=== PATIENT | female | born 1990 | race Caucasian/White ===

== ENCOUNTER 2017-06-14 09:00 | Outpatient (RCR) | payer MEDICAID, SELFPAY ==
--- NOTE | 2017-06-14 10:58 | BH.SGPN ---
Service Group Progress Note - Session Psychotherapy Session #1 Date Open:: 18 - 5 group members Time Started:: 09:03 Time Stopped:: 09:55 Targeted Problem #:: 1 Type of Group:: Process Goal of Group:: The goal of today's group was to check-in with client's mood, stressors, and positives and introduce topic for the day. Behaviors/Verbalizations/Mental Status:: Client's time stopped for group differs from peers' as client left a few minutes early to meet with individual therapist. Client Response/Progress/Benefit:: Client responded well to session, active participant. Client reports feeling sluggish which client reports belief is due to recent medication changes. Client shared it almost makes me feel hungover and client reports feeling jumpy as well. Client stated she is concerned about the hungover feeling as client had issues with abusing alcohol in the past and her current reaction to the medication is making me want to drink. When asked how client is coping she shared, I've been isolating and sleeping and I know it's not good. Client identified healthy alternative coping skills such as going to counseling tonight. Client appeared to benefit from communicating medication concerns and finding alternative coping skills. Client encouraged to follow up with [facility] regarding recent medication side effects. Eye Contact:: Fair Motor Activity:: Slowed Appearance:: Casual Speech:: Soft Mood:: Dysthymic Affect:: Other - incongruent as evidenced by client reporting she is frustrated and feeling upset, but smiling while sharing. Thoughts:: Linear, No evidence of hallucinations/delusions noted Staff Interventions:: Therapist used open-ended questions to elicit information about client's current stressors and mood state. Therapist was supportive by using active listening and reflection. Therapist facilitated a mindfulness activity to promote emotional well-being and calmness.
--- NOTE | 2017-06-14 14:43 | BH.SGPN ---
Service Group Progress Note - Session Psychotherapy Session #2 Date Open:: 06/14/17 Time Started:: 10:15 Time Stopped:: 11:10 Targeted Problem #:: 1 Type of Group:: Illness Management Goal of Group:: The goal of group was to increase understanding of the benefits social support provides in mental health wellness. Another goal was to increase self-awareness of what qualities the individual group members look for in a person. Eye Contact:: Fair Motor Activity:: Appropriate Appearance:: Casual Speech:: Appropriate Mood:: Euthymic, Other - Tired which pt reported could be connected to her medications. Affect:: Constricted Thoughts:: Linear, Logical, No evidence of hallucinations/delusions noted Staff Interventions:: Therapist led an experiential activity that demonstrated the need of supports. Processed activity and led discussion about quote. Therapist led group discussion about importance of social supports. Identified what qualities a positive support person would have. Support was provided through reflective listening and giving feedback. Psychotherapy Session #3 Date Open:: 06/14/17 Time Started:: 11:20 Time Stopped:: 12:20 Targeted Problem #:: 1 Type of Group:: Functional Skills Development Goal of Group:: The goal of group was to increase understanding of the different types of social support. Another goal was to identify one type of support the clients desire and establish one small step towards achieving that support. Eye Contact:: Fair Motor Activity:: Appropriate Appearance:: Casual Speech:: Appropriate Mood:: Euthymic, Other - Tired which pt connected her medications to making her more tired. Affect:: Constricted Thoughts:: Linear, Logical, No evidence of hallucinations/delusions noted Staff Interventions:: Therapist facilitated group discussion on the different types of social support and importance of each type of support. A worksheet titled Plan for Seeking Support was utilized to give clients direction in identifying which type of support they desired and identifying the first small step towards the desired support.
--- NOTE | 2017-06-19 16:12 | BH.TPR ---
Treatment Plan Review Date of Treatment Plan Review:: 06/19/17
--- NOTE | 2017-06-20 10:41 | BH.SGPN ---
Service Group Progress Note - Session Psychotherapy Session #1 Date Open:: 05/17/17 Time Started:: 09:08 Time Stopped:: 10:12 Targeted Problem #:: 1 Type of Group:: Process - 9 participants Psychotherapy Session #2 Date Open:: 05/17/17 Time Started:: 10:27 Time Stopped:: 11:19 Targeted Problem #:: 1 Type of Group:: Illness Management - 6 participants Psychotherapy Session #3 Date Open:: 05/17/17 Time Started:: 11:28 Time Stopped:: 12:18 Targeted Problem #:: 1 Type of Group:: Functional Skills Development - 6 participants
--- NOTE | 2017-06-20 13:15 | BH.SGPN ---
Service Group Progress Note - Session Psychotherapy Session #1 Date Open:: 06/20/17 Time Started:: 09:10 Time Stopped:: 10:00 Targeted Problem #:: 1 Type of Group:: Process - 4 Participants Goal of Group:: The goal of today's group was to check-in with client's mood, stressors, and positives, review homework, and to introduce the topic of the day. Client Response/Progress/Benefit:: Client entered session alert and attentive. Client reported sleeping throughout most of the weekend and stated, I didnt want to be around anyone. When asked what triggered the isolative behavior client reported, [facility] I seen my ex-boyfriend and it brought back a lot of memories, but instead of going up to him I ran down three aisles away from him. Client identified that she was isolating over the weekend but was still able to talk with friends which she reported, helped me get think things through. Client shared that she was able to attend mosque on Monday and felt good that she was able to talk to others. Client benefitted from group identifying the negative coping skills she incorporated throughout the weekend. Progress noted as client was still able to use healthy coping skills such as reaching out to others despite isolative behavior. Continued treatment necessary to increase daily functioning. Eye Contact:: Good Motor Activity:: Appropriate Appearance:: Disheveled Speech:: Appropriate Mood:: Euthymic Affect:: Full Thoughts:: Linear, Logical, No evidence of hallucinations/delusions noted Staff Interventions:: Therapist used open-ended questions to elicit information about client's current stressors and mood. Therapist was supportive by using active listening and reflection. Psychotherapy Session #2 Date Open:: 06/20/17 Time Started:: 10:08 Time Stopped:: 11:00 Targeted Problem #:: 1 Type of Group:: Process - 5 Participants Goal of Group:: To increase understanding of components of a problem, learn strategies to solve a problem and rehearse problem solving skills. Client Response/Progress/Benefit:: Client entered session alert, attentive, and willing to engage. Client connected with the days quote stating, Problems wont go anywhere that their supposed too, Client went to share how she experienced a problem this week when she ran into her ex-boyfriend but, I took the best option and avoided him. Client participated in group activity designed to have group members use problem solving skills when faced with stressors. Client collaborated well with peers to successfully complete activity. Client benefitted from group by identifying various problem solving strategies and implementing them in group practice. Progress noted in clients ability complete activity and increased insight into healthy problem solving skills. Eye Contact:: Good Motor Activity:: Appropriate Appearance:: Disheveled Speech:: Appropriate Mood:: Euthymic, Anxious Affect:: Full Thoughts:: Linear, Logical, No evidence of hallucinations/delusions noted Staff Interventions:: Therapist facilitated group discussion about problems and the underlying components of problems. Therapist educated group about various strategies to solving a problem and provided an example of each. Therapist led group in an experiential activity that required group members to use problem solving skills to work together, rehearsing problem solving skills.
--- NOTE | 2017-06-20 15:09 | BH.SGPN ---
Service Group Progress Note - Session Psychotherapy Session #3 Date Open:: 06/20/17 - 5 group members Time Started:: 11:07 Time Stopped:: 12:01 Targeted Problem #:: 1 Type of Group:: Functional Skills Development Goal of Group:: To identify steps to solving a personal problem and increase awareness to those barriers that impedes the problem solving process. Client Response/Progress/Benefit:: Client responded well to session, passive participant at times. Client identified needing a job as a personal problem she would like to solve. Client identified her barriers to be: mental health, self-doubt, potential new mental health program, and isolation. Client created small steps to solve this problem such as: complete a job assessment, update her resume, find job resources, and apply for jobs. Client reported she may not be able to work toward this goal right now as client is potentially starting another mental health program after IOP. Client stated using healthy coping skills like pets, working on cars, and pentec[employer] will keep client motivated throughout this process. Client appeared to benefit from gaining awareness of barriers and identifying strategies to overcome her problem. Client progressing with identifying small steps to work toward goals, but continues to struggle with coping with triggers. Eye Contact:: Fair Motor Activity:: Appropriate Appearance:: Casual Speech:: Soft Mood:: Dysthymic Affect:: Constricted Thoughts:: Linear, No evidence of hallucinations/delusions noted Staff Interventions:: Therapist provided group members with a worksheet in which the group members were instructed to identify a problem and steps need to take to solve that problem. Then therapist instructed group members to identify those barriers that get in the way of solving the problem. Therapist led the processing of the activity. Therapist provided support by using active listening and providing feedback.
--- NOTE | 2017-06-21 12:02 | BH.SGPN ---
Service Group Progress Note - Session Psychotherapy Session #2 Date Open:: 06/21/17 Time Started:: 10:11 Time Stopped:: 11:08 Targeted Problem #:: 1 Type of Group:: Illness Management - 4 participants Psychotherapy Session #3 Date Open:: 06/21/17 Time Started:: 11:16 Time Stopped:: 12:12 Targeted Problem #:: 1 Type of Group:: Functional Skills Development - 4 participants
--- NOTE | 2017-06-21 12:03 | BH.SGPN ---
Service Group Progress Note - Session Psychotherapy Session #1 Date Open:: 06/21/17 Time Started:: 09:03 Time Stopped:: 09:55 Targeted Problem #:: 1 Type of Group:: Process Goal of Group:: The goal of today's group was to check-in with client's mood, stressors, and positives, review homework and introduce topic for the day. Client Response/Progress/Benefit:: Client shared she is feeling happy because she was able to go visit her birds yesterday. She shared when she gets to see her birds and tends to put her in a positive mood. 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 Client shared she is feeling stated that she is getting closer to being able to hopefully attend the residential program that would last 6-9 months. Client shared she will need to go to a interview and hopefully will find out soon after that if she is accepted to attend the program. Client progress may be hindered by client having difficulty with opening up to the group tends to keep those thoughts and feelings inside. Eye Contact:: Fair Motor Activity:: Restless Appearance:: Casual Speech:: Appropriate Mood:: Dysthymic Affect:: Constricted Thoughts:: Linear, Logical, No evidence of hallucinations/delusions noted Staff Interventions:: Therapist used open-ended questions to elicit information about client's current stressors and mood state. Therapist was supportive by using active listening and reflection.
--- NOTE | 2017-06-21 15:19 | BH.MDN ---
Multi-Disciplinary Note - Note 45-min Individual Time Started:: 12:15 Date: 06/21/17 Purpose of session/treatment goals addressed:: Purpose of session was to assess pt's current symptoms and stressors. Other topics included: mood state warning signs, relationships, and treatment progress. Eye Contact:: Fair Motor Activity:: Restless Appearance:: Casual Speech:: Appropriate Mood:: Depressed Affect:: Constricted Thoughts:: Linear, Logical, No evidence of hallucinations/delusions noted Staff Interventions:: Therapist used open ended questions to elicit pt's current symptoms and stressors. Therapist reviewed homework from last indiviudal session with pt. Discussed warning signs for manic state and depressive state. Therapist elicited pt's thoughts about progress since starting program and what pt believes she would like to focus on for remainder of program. Therapist provided support and validated emotions. Processed recent traumatic event and reinforced healthy coping skills. Client Response:: Pt reported she was able to identify her warning signs for a depressive state and a manic state. Identified depressive warning signs to include: feeling guilty, hopeless, worthless, difficulty making decisions, no energy, isolation, fatigue, c Time Stopped:: 13:00
--- NOTE | 2017-06-27 13:19 | BH.SGPN_ITS ---
Service Group Progress Note - Session Psychotherapy Session #1 Date Open:: 06/20/17 Time Started:: 09:10 Time Stopped:: 10:00 Targeted Problem #:: 1 Type of Group:: Process - 4 Participants Goal of Group:: The goal of today's group was to check-in with client's mood, stressors, and positives, review homework, and to introduce the topic of the day. Client Response/Progress/Benefit:: Client entered session alert and attentive. Client reported sleeping throughout most of the weekend and stated, ?I didn?t want to be around anyone.? When asked what triggered the isolative behavior client reported, ?In [facility] on Monday I seen my ex-boyfriend and it brought back a lot of memories, but instead of going up to him I ran down three aisles away from him.? Client identified that she was isolating over the weekend but was still able to talk with friends which she reported, ?helped me get think things through.? Client shared that she was able to attend nondenominational on Monday and felt good that she was able to talk to others. Client benefitted from group identifying the negative coping skills she incorporated throughout the weekend. Progress noted as client was still able to use healthy coping skills such as reaching out to others despite isolative behavior. Continued treatment necessary to increase daily functioning. Eye Contact:: Good Motor Activity:: Appropriate Appearance:: Disheveled Speech:: Appropriate Mood:: Euthymic Affect:: Full Thoughts:: Linear, Logical, No evidence of hallucinations/delusions noted Staff Interventions:: Therapist used open-ended questions to elicit information about client's current stressors and mood. Therapist was supportive by using active listening and reflection. Psychotherapy Session #2 Date Open:: 06/20/17 Time Started:: 10:08 Time Stopped:: 11:00 Targeted Problem #:: 1 Type of Group:: Process - 5 Participants Goal of Group:: To increase understanding of components of a problem, learn strategies to solve a problem and rehearse problem solving skills. Client Response/Progress/Benefit:: Client entered session alert, attentive, and willing to engage. Client connected with the days quote stating, ?Problems won? t go anywhere that their supposed too,? Client went to share how she experienced a problem this week when she ran into her ex-boyfriend but, ?I took the best option and avoided him.? Client participated in group activity designed to have group members use problem solving skills when faced with stressors. Client collaborated well with peers to successfully complete activity. Client benefitted from group by identifying various problem solving strategies and implementing them in group practice. Progress noted in client?s ability complete activity and increased insight into healthy problem solving skills. Eye Contact:: Good Motor Activity:: Appropriate Appearance:: Disheveled Speech:: Appropriate Mood:: Euthymic, Anxious Affect:: Full Thoughts:: Linear, Logical, No evidence of hallucinations/delusions noted Staff Interventions:: Therapist facilitated group discussion about problems and the underlying components of problems. Therapist educated group about various strategies to solving a problem and provided an example of each. Therapist led group in an experiential activity that required group members to use problem solving skills to work together, rehearsing problem solving skills.
--- NOTE | 2017-06-28 14:18 | BH.SGPN_ITS ---
Service Group Progress Note - Session Psychotherapy Session #2 Date Open:: 06/28/17 group members Time Started:: 10:20 Time Stopped:: 11:15 Targeted Problem #:: 1 Type of Group:: Illness Management Goal of Group:: To increase understanding of resilience and identify the factors that contribute to building resilience. Client Response/Progress/Benefit:: Client responded well to session, active participant. Client processed the quote with peers sharing being rigid does not help a person adapt. Client helped the group identify factors of resiliency such as supportive connections and moving towards goals. Client shared it is important to communicate to supports to build resiliency and keep moving towards goals. Client reported belief she is resilient and agreed with peers that resiliency is something that is learned and developed over time as one overcomes hardships. Client appeared to benefit from increasing her awareness of the resiliency factors. Client progressing as shown by her report of increased use of healthy supports, but continues to struggle with setting boundaries which could hinder progress. Eye Contact:: Fair Motor Activity:: Appropriate Appearance:: Casual Speech:: Appropriate Mood:: Euthymic Affect:: Constricted Thoughts:: Linear, No evidence of hallucinations/delusions noted Staff Interventions:: Therapist led group in an activity that would induce a chaotic environment and used the activity as a tool in discussing the various stressors people are faced with each day. Therapist facilitated group discussion about resilience and explained the factors of building resilience. Therapist led discussion about factors that contribute to resilience. Therapist provided support by using active listening and providing feedback. Psychotherapy Session #3 Date Open:: 06/28/17 group members Time Started:: 11:21 Time Stopped:: 12:11 Targeted Problem #:: 1 Type of Group:: Functional Skills Development Goal of Group:: To rehearse resilient factors and identify ways to maintain resilience despite hardships and stressors. Client Response/Progress/Benefit:: Client responded well to session, active participant. Client reported communication and working with a team of supports increases resiliency. Client identified her personal resiliency factors as accepting that change ?is life? and having courage to change. Client stated her life experiences have shaped her and allowed client to reflect on positive changes she has made. Client was receptive to supportive statements given by therapist and peers on additional resiliency traits client possesses. Client wrote her personal resiliency traits on her stress ball to remind client of how she can remain resilient despite hardships. Client appeared to benefit from identifying ways in which client has demonstrated resiliency. Client progressing as evidenced by her report of increased confidence in client?s ability to change. Eye Contact:: Good Motor Activity:: Appropriate Appearance:: Casual Speech:: Appropriate Mood:: Euthymic Affect:: Congruent Thoughts:: Linear, No evidence of hallucinations/delusions noted Staff Interventions:: Therapist led group in an activity in which group members were challenged to stay resilient despite various stressors and hardships added to activity. Therapist provided each group member with a stress ball and used stress ball as a tool to discuss factors of resilient personality. Therapist provided group members with a handout about the building blocks of resilience. Therapist provided support by using reflective listening.
--- NOTE | 2017-06-28 16:18 | BH.SGPN ---
Service Group Progress Note - Session Psychotherapy Session #1 Date Open:: 06/28/17 Time Started:: 09:09 Time Stopped:: 10:15 Targeted Problem #:: 1 Type of Group:: Process - 10 participants
--- NOTE | 2017-07-03 10:31 | BH.SGPN ---
Service Group Progress Note - Session Psychotherapy Session #1 Date Open:: 18 - 9 group members Time Started:: 09:00 Time Stopped:: 10:02 Targeted Problem #:: 1 Type of Group:: Process Goal of Group:: The goal of today's group was to check-in with client's mood, stressors, and positives, and introduce topic for the day. Staff Interventions:: Therapist used open-ended questions to elicit information about client's current stressors and mood state. Therapist was supportive by using active listening and reflection.
--- NOTE | 2017-07-03 15:17 | BH.MDN ---
Multi-Disciplinary Note - Note 30-min Individual Time Started:: 09:05 Date: 07/03/17 Time Stopped:: 09:35
--- NOTE | 2017-07-03 16:37 | BH.SGPN ---
Service Group Progress Note - Session Psychotherapy Session #2 Date Open:: 07/03/17 Time Started:: 10:12 Time Stopped:: 11:12 Targeted Problem #:: 1 Type of Group:: Illness Management - 10 participants Psychotherapy Session #3 Date Open:: 07/03/17 Time Started:: 11:19 Time Stopped:: 12:20 Targeted Problem #:: 1 Type of Group:: Functional Skills Development - 10 participants
--- NOTE | 2017-07-04 13:22 | BH.SGPN ---
Service Group Progress Note - Session Psychotherapy Session #1 Date Open:: 07/04/17 Time Started:: 09:05 Time Stopped:: 09:57 Targeted Problem #:: 1 Type of Group:: Process - 4 Participants Goal of Group:: The goal of today's group was to check-in with client's mood, stressors, and positives, review homework, and to introduce the topic of the day. Client Response/Progress/Benefit:: Client entered session alert, attentive, and willing to engage. Client shared that she was able to see her birds yesterday, which always makes her feel happy, and has plans of getting another bird soon. Client indicated her emotion as awesome but when asked to elaborate she reported, I feel better now than what I did. I know more about myself and I have more coping skills to use for when I start feeling bad. Therapist questioned what some of her warning signs were and she stated, I start feeling down, I sleep a lot, and I dont want to do anything. Client was able to identify that in the past she was preventing herself from moving forward but now is taking preventative measures to ensure things do get bad as before. Client benefited from group from identifying the control she has over stressors. Progress noted in clients ability to effectively use coping skills in a healthy manner. Continued treatment necessary to prevent decompensation. Eye Contact:: Good Motor Activity:: Appropriate Appearance:: Casual Speech:: Appropriate Mood:: Euthymic Affect:: Full Thoughts:: Linear, Logical, No evidence of hallucinations/delusions noted Staff Interventions:: Therapist used open-ended questions to elicit information about client's current stressors and mood. Therapist was supportive by using active listening and reflection. Psychotherapy Session #2 Date Open:: 07/04/17 Time Started:: 10:05 Time Stopped:: 11:00 Targeted Problem #:: 1 Type of Group:: Illness Management - 4 Participants Goal of Group:: The goal of todays group is to identify how emotions can impact our communication skills, and why it is important to be able to communicate in stressful situations. Client Response/Progress/Benefit:: Client was alert and attentive during group. Client was a semi-active participant in group. Client did well to process with the group how various emotions impact communication and ones ability to utilize supports. Client collaborated with peers and participated in group activity that tested how clients manage their emotions when placed under stressful circumstances. It appeared throughout the activity client struggled communicating with peers what she was trying to say, lead peers down difficult roads with barriers, and would freeze when she became overwhelmed. Despite difficulty, client benefitted from relating activity back to how our emotions impact communication during times of stress. Progress noted in clients persistence to complete activity. Continued treatment necessary to prevent decompensation. Eye Contact:: Good Motor Activity:: Appropriate Appearance:: Casual Speech:: Appropriate Mood:: Euthymic Affect:: Full Thoughts:: Linear, Logical, No evidence of hallucinations/delusions noted Staff Interventions:: Therapist led an experiential activity where group members worked together for a common goal, but with adaptations made on how members were able to communicate with one another. Therapist used open-ended questions to elicit group discussion about emotions which arose during activity, as well as identifying how emotions experienced impacted ability to communicate effectively with other group members.
--- NOTE | 2017-07-04 13:25 | BH.SGPN_ITS ---
Service Group Progress Note - Session Psychotherapy Session #1 Date Open:: 07/04/17 Time Started:: 09:05 Time Stopped:: 09:57 Targeted Problem #:: 1 Type of Group:: Process - 4 Participants Goal of Group:: The goal of today's group was to check-in with client's mood, stressors, and positives, review homework, and to introduce the topic of the day. Client Response/Progress/Benefit:: Client entered session alert, attentive, and willing to engage. Client shared that she was able to see her birds yesterday, which always makes her feel happy, and has plans of getting another bird soon. Client indicated her emotion as awesome but when asked to elaborate she reported , ?I feel better now than what I did. I know more about myself and I have more coping skills to use for when I start feeling bad.? Therapist questioned what some of her warning signs were and she stated, ?I start feeling down, I sleep a lot, and I don?t want to do anything.? Client was able to identify that in the past she was preventing herself from moving forward but now is taking preventative measures to ensure things do get bad as before. Client benefited from group from identifying the control she has over stressors. Progress noted in client?s ability to effectively use coping skills in a healthy manner. Continued treatment necessary to prevent decompensation. Eye Contact:: Good Motor Activity:: Appropriate Appearance:: Casual Speech:: Appropriate Mood:: Euthymic Affect:: Full Thoughts:: Linear, Logical, No evidence of hallucinations/delusions noted Staff Interventions:: Therapist used open-ended questions to elicit information about client's current stressors and mood. Therapist was supportive by using active listening and reflection. Psychotherapy Session #2 Date Open:: 07/04/17 Time Started:: 10:05 Time Stopped:: 11:00 Targeted Problem #:: 1 Type of Group:: Illness Management - 4 Participants Goal of Group:: The goal of today?s group is to identify how emotions can impact our communication skills, and why it is important to be able to communicate in stressful situations. Client Response/Progress/Benefit:: Client was alert and attentive during group. Client was a semi-active participant in group. Client did well to process with the group how various emotions impact communication and one?s ability to utilize supports. Client collaborated with peers and participated in group activity that tested how clients manage their emotions when placed under stressful circumstances. It appeared throughout the activity client struggled communicating with peers what she was trying to say, lead peers down difficult roads with barriers, and would freeze when she became overwhelmed. Despite difficulty, client benefitted from relating activity back to how our emotions impact communication during times of stress. Progress noted in client?s persistence to complete activity. Continued treatment necessary to prevent decompensation. Eye Contact:: Good Motor Activity:: Appropriate Appearance:: Casual Speech:: Appropriate Mood:: Euthymic Affect:: Full Thoughts:: Linear, Logical, No evidence of hallucinations/delusions noted Staff Interventions:: Therapist led an experiential activity where group members worked together for a common goal, but with adaptations made on how members were able to communicate with one another. Therapist used open-ended questions to elicit group discussion about emotions which arose during activity , as well as identifying how emotions experienced impacted ability to communicate effectively with other group members.
--- NOTE | 2017-07-04 14:50 | BH.SGPN_ITS ---
Service Group Progress Note - Session Psychotherapy Session #3 Date Open:: 07/04/17 - 4 group members Time Started:: 11:10 Time Stopped:: 12:03 Targeted Problem #:: 1 Type of Group:: Functional Skills Development Goal of Group:: The goal of today?s group was to increase awareness of different states of alertness attached to emotions and identifying healthy coping strategies for each state of alertness. Client Response/Progress/Benefit:: Client responded well to session, active participant. Client shared she connects with the four states of emotional alertness and processed her warning signs and coping skills for each state. Client reported when she feels low energy she isolates and has negative thinking. Client identified ?being active? by getting out of the house to improve client's low energy or depressed state. Client shared when she is in the crisis state she wants to use substances and feels hopeless. Client identified coping skills for crisis such as ?finger-tapping? and deep breathing. Client reported it is important to have awareness of warning signs for each emotional state so client can implement healthy coping skills. Client appeared to benefit from identifying warning signs and healthy coping skills specific each level of emotional alertness. Client also reported self-care is critical maintaining a calm emotional state. Client progressing as shown by her report of an improved mood and increased mood stability. Eye Contact:: Fair - on her phone at times Motor Activity:: Appropriate Appearance:: Casual Speech:: Appropriate Mood:: Euthymic Affect:: Congruent Thoughts:: Linear, No evidence of hallucinations/delusions noted Staff Interventions:: Therapist facilitated group by teaching about the 4 zones of different states of alertness and helping clients connect emotions to each zone based on state of alertness. Therapist assisted clients with identifying healthy coping strategies that would be best utilized based on the state of alertness. Therapist provided support by using active listening and providing feedback.
--- NOTE | 2017-07-05 12:28 | BH.AFTERPLAN ---
Aftercare Plan - Demographics Treatment End Date:: 07/05/17 Psychiatrist:: Radha Nicholas Psychiatrist Office #:: [phone] [facility]/IOP Therapist:: Rachel Hernandez Therapist Phone #:: [phone] - Medications Home Medications: Home Medications Atorvastatin Calcium [Lipitor] 10 mg PO QHS 06/09/17 Brexpiprazole [Rexulti] 2 mg PO DAILY 06/09/17 Hydroxyzine Pamoate [Vistaril] 50 mg PO DAILY PRN 06/09/17 [place] Carbonate 300 mg PO BREAKFAST 06/09/17 [place] Carbonate [Eskalith Cr] 450 mg PO DINNER 06/09/17 Trazodone HCl [Desyrel] 50 mg PO QHS PRN 06/09/17 Venlafaxine XR [Effexor Xr] 300 mg PO DAILY 06/09/17 - Plan Details Progress/Aftercare Plan Details:: Client has made progress with improved mood stability and decreased anxious symptoms. Client is better able to identify her warning signs for the different mood states as well as knows the coping skills to help stabilize her moods. Client has shown improvement with increased self confidence and assertiveness. Client reports feeling more emotionally stable with more awareness of healthy coping skills. Strategies for Success:: 1. Cooking, walking, and other healthy coping skills you've found to be helpful. 2. Going to visit your birds. 3. REaching out to supports like advent and attending the [employer] program. 4. Continue to recognize your unhealthy thought patterns and challenge those thoughts. 5. Boundaries are hillman!!! 6. Stopping to think when the best time is to speak up. 7. Referring back to your binder for refresher of skills. - Appointments Appointments/Referrals to Other Services:: 1. Caitlyn chowdhury for followup counseling on 07/06/17 at [address] 2[address] Dr. Simons at [facility] for followup psychiatry on 08/08/17.
--- NOTE | 2017-07-05 12:33 | BH.IGGP_ITS ---
Aftercare Plan - Demographics Treatment End Date:: 07/05/17 Psychiatrist:: Radha Nicholas Psychiatrist Office #:: [phone] [facility]/IOP Therapist:: Rachel Hernandez Therapist Phone #:: [phone] - Medications Home Medications: Home Medications Atorvastatin Calcium [Lipitor] 10 mg PO QHS 06/09/17 Brexpiprazole [Rexulti] 2 mg PO DAILY 06/09/17 Hydroxyzine Pamoate [Vistaril] 50 mg PO DAILY PRN 06/09/17 [place] Carbonate 300 mg PO BREAKFAST 06/09/17 [place] Carbonate [Eskalith Cr] 450 mg PO DINNER 06/09/17 Trazodone HCl [Desyrel] 50 mg PO QHS PRN 06/09/17 Venlafaxine XR [Effexor Xr] 300 mg PO DAILY 06/09/17 - Plan Details Progress/Aftercare Plan Details:: Client has made progress with improved mood stability and decreased anxious symptoms. Client is better able to identify her warning signs for the different mood states as well as knows the coping skills to help stabilize her moods. Client has shown improvement with increased self confidence and assertiveness. Client reports feeling more emotionally stable with more awareness of healthy coping skills. Strategies for Success:: 1. Cooking, walking, and other healthy coping skills you've found to be helpful. 2. Going to visit your birds. 3. REaching out to supports like [employer] and attending the [employer] program. 4. Continue to recognize your unhealthy thought patterns and challenge those thoughts. 5. Boundaries are hillman!!! 6. Stopping to think when the best time is to speak up. 7. Referring back to your binder for refresher of skills. - Appointments Appointments/Referrals to Other Services:: 1. Caitlyn chowdhury for followup counseling on 07/06/17 at [address] 2[address] Dr. Simons at [facility] for followup psychiatry on 08/08/17.
--- NOTE | 2017-07-05 14:25 | BH.DS ---
Discharge Summary - Demographics Date of Admission:: 05/22/17 Discharge Date: 07/05/17 Presenting Problems at Admission:: Pt presented to admission after discharge from [facility] level of care. At time of [facility] admission pt endorsed depressed mood with low energy, low motivation, anhedonia, isolative behaviors, and passive thoughts of . Discharge Diagnoses:: Bipolar 2 disorder. Generalized anxiety disorder. PTSD. Cluster B traits. History of alcohol abuse-remote Reason for Discharge:: Pt has made progress on treatment goals and no longer meets medical necessity for [facility] of care. - Treatment Progress During Treatment & Response: Client has made progress with improved mood stability and decreased anxious symptoms. Client is better able to identify her warning signs for her different mood states as well as knows the coping skills to help stabilize her moods. Client has shown improvement with increased self confidence and assertiveness. Client reports feeling more emotionally stable with increased awareness of healthy coping skills. Client responded well to treatment AEB pt contributing to discussions, engaged in activities, and completed assigned homework from both individual and group sessions. Issues Still to be Addressed:: Client could benefit from continued reinforcement of healthy coping skills, strategies to help client maintain healthy boundaries, increase extracurricular activities, and working through past experiences that continue to impact client to this day. Discharge Recommendations/Instructions:: It is recommended pt follow up with Caitlyn at [facility] for followup counseling. As well as follow up with Dr. Simons at [facility] for medication management. Discharge Handout: Complete Discharge Handout with client on aftercare options and continuity of care.
--- NOTE | 2017-07-05 14:45 | BH.SGPN ---
Service Group Progress Note - Session Psychotherapy Session #2 Date Open:: 07/05/17 Time Started:: 10:15 Time Stopped:: 11:07 Targeted Problem #:: 1 Type of Group:: Illness Management - 8 group members Goal of Group:: To increase understanding how positive and negative forces in life can impact balance in life. Client Response/Progress/Benefit:: Client had some difficulty with focusing at times because client seemed to be easily distracted by another group member that was not on task. Client did contributed positively to discussion. Client was engaged in group challenge activity however did not verbalize any of her thoughts or ideas during brainstorming. Client able to connect importance of being able to balance forces as well as being able to utilize supports to be able to help. Seemed benefit from increasing awareness of the impact negative and positive forces can have on ones functioning and progress. Eye Contact:: Good Motor Activity:: Appropriate Appearance:: Casual Speech:: Appropriate Mood:: Euthymic Affect:: Congruent Thoughts:: Linear, Logical, No evidence of hallucinations/delusions noted Staff Interventions:: Therapist facilitated group discussion about the various forces of life and helped clients connect the impact they have on balance in life. Therapist led group in an experiential activity in which group members had to work together to balance an object and move it to a designated location. Therapist utilized the activity as a tool to process the challenges connected with balancing various forces. Psychotherapy Session #3 Date Open:: 07/05/17 Time Started:: 11:17 Time Stopped:: 12:15 Targeted Problem #:: 1 Type of Group:: Functional Skills Development - 7 group members Goal of Group:: To identify positive and negative forces in life and identify which forces are helping stability and which forces are contributing to instability. Client Response/Progress/Benefit:: Client showed increased engagement during the this group session as evidenced by client's contributing to discussion and listening to peers. Client identified her negative forces to include: Her brothers, toxic relationships, alcohol, isolation, and sleeping too much. 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 Client identified her forces to be balance currently with knowing she is going to [employer] as her most positive impactful force. Client seemed to benefit from increasing awareness of her negative and positive forces as well as discussion of how to maintain that balance between the forces. Client also noted the progress she made throughout IOP given today is her last day in the program. Eye Contact:: Good Motor Activity:: Appropriate Appearance:: Casual Speech:: Appropriate Mood:: Euthymic Affect:: Congruent Thoughts:: Linear, Logical, No evidence of hallucinations/delusions noted Staff Interventions:: Therapist provided group with an example of a scenario of a person and the individual?s positive and negative forces. Therapist provided each group member with a worksheet in which they were to identify five positive and five negative forces in their life. Therapist processed the activity with the group, helping others connect the impact certain forces have on their life balance.
--- NOTE | 2017-07-05 14:52 | BH.SGPN_ITS ---
Service Group Progress Note - Session Psychotherapy Session #1 Date Open:: 18 - 8 group members Time Started:: 09:05 Time Stopped:: 10:00 Targeted Problem #:: 1 Type of Group:: Process Goal of Group:: The goal of today's group was to check-in on client's mood, stressors, and functioning. Client Response/Progress/Benefit:: Client responded well to session, active participant. Client reports feeling ?proud? today as client shares she has worked hard throughout her time in IOP to make changes and remove ?toxic? people from her life. Client reflected on her time in IOP sharing, ?at first I was overwhelmed, but I learned so much.? Client reported moving forward she is nervous to leave, but identified her mother as a support that will help client progress. Eye Contact:: Good Motor Activity:: Appropriate Appearance:: Casual Speech:: Appropriate Mood:: Euthymic Affect:: Full Thoughts:: Linear, No evidence of hallucinations/delusions noted Staff Interventions:: Therapist facilitated the group session by asking open ended questions that encouraged group members to discuss their coping skills, stressors, barriers, and current mood state.
--- NOTE | 2017-07-10 09:26 | BH.DS_ITS ---
Discharge Summary - Demographics Date of Admission:: 05/22/17 Discharge Date: 07/05/17 Presenting Problems at Admission:: Pt presented to admission after discharge from [facility] level of care. At time of [facility] admission pt endorsed depressed mood with low energy, low motivation, anhedonia, isolative behaviors, and passive thoughts of . Discharge Diagnoses:: Bipolar 2 disorder. Generalized anxiety disorder. PTSD. Cluster B traits. History of alcohol abuse-remote Reason for Discharge:: Pt has made progress on treatment goals and no longer meets medical necessity for [facility] of care. - Treatment Progress During Treatment & Response: Client has made progress with improved mood stability and decreased anxious symptoms. Client is better able to identify her warning signs for her different mood states as well as knows the coping skills to help stabilize her moods. Client has shown improvement with increased self confidence and assertiveness. Client reports feeling more emotionally stable with increased awareness of healthy coping skills. Client responded well to treatment AEB pt contributing to discussions, engaged in activities, and completed assigned homework from both individual and group sessions. Issues Still to be Addressed:: Client could benefit from continued reinforcement of healthy coping skills, strategies to help client maintain healthy boundaries, increase extracurricular activities, and working through past experiences that continue to impact client to this day. Discharge Recommendations/Instructions:: It is recommended pt follow up with Caitlyn at [facility] for followup counseling. As well as follow up with Dr. Simons at [facility] for medication management. Discharge Handout: Complete Discharge Handout with client on aftercare options and continuity of care.
--- NOTE | 2017-07-10 09:53 | BH.SGPN_ITS ---
Service Group Progress Note - Session Psychotherapy Session #2 Date Open:: 07/05/17 Time Started:: 10:15 Time Stopped:: 11:07 Targeted Problem #:: 1 Type of Group:: Illness Management - 8 group members Goal of Group:: To increase understanding how positive and negative forces in life can impact balance in life. Client Response/Progress/Benefit:: Client had some difficulty with focusing at times because client seemed to be easily distracted by another group member that was not on task. Client did contributed positively to discussion. Client was engaged in group challenge activity however did not verbalize any of her thoughts or ideas during brainstorming. Client able to connect importance of being able to balance forces as well as being able to utilize supports to be able to help. Seemed benefit from increasing awareness of the impact negative and positive forces can have on ones functioning and progress. Eye Contact:: Good Motor Activity:: Appropriate Appearance:: Casual Speech:: Appropriate Mood:: Euthymic Affect:: Congruent Thoughts:: Linear, Logical, No evidence of hallucinations/delusions noted Staff Interventions:: Therapist facilitated group discussion about the various forces of life and helped clients connect the impact they have on balance in life. Therapist led group in an experiential activity in which group members had to work together to balance an object and move it to a designated location. Therapist utilized the activity as a tool to process the challenges connected with balancing various forces. Psychotherapy Session #3 Date Open:: 07/05/17 Time Started:: 11:17 Time Stopped:: 12:15 Targeted Problem #:: 1 Type of Group:: Functional Skills Development - 7 group members Goal of Group:: To identify positive and negative forces in life and identify which forces are helping stability and which forces are contributing to instability. Client Response/Progress/Benefit:: Client showed increased engagement during the this group session as evidenced by client's contributing to discussion and listening to peers. Client identified her negative forces to include: Her brothers, toxic relationships, alcohol, isolation, and sleeping too much. 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 Client identified her forces to be balance currently with knowing she is going to [employer] as her most positive impactful force. Client seemed to benefit from increasing awareness of her negative and positive forces as well as discussion of how to maintain that balance between the forces. Client also noted the progress she made throughout IOP given today is her last day in the program. Eye Contact:: Good Motor Activity:: Appropriate Appearance:: Casual Speech:: Appropriate Mood:: Euthymic Affect:: Congruent Thoughts:: Linear, Logical, No evidence of hallucinations/delusions noted Staff Interventions:: Therapist provided group with an example of a scenario of a person and the individual???s positive and negative forces. Therapist provided each group member with a worksheet in which they were to identify five positive and five negative forces in their life. Therapist processed the activity with the group, helping others connect the impact certain forces have on their life balance.
== END 2017-07-05 14:00 | disposition home or self-care (01) ==
LOC: BHIOP 09:00
PROVIDERS: Visit Provider Psychiatry & Neurology Psychiatry
DX: F31.9 Bipolar disorder, unspecified (principal); F41.1 Generalized anxiety disorder; F43.10 Post-traumatic stress disorder, unspecified
CPT/HCPCS: H0035; H2012; H2020; 90832; 90834

== ENCOUNTER 2022-03-20 16:30 | Emergency (ER) | payer MEDICAID, SELFPAY ==
[2022-03-20 16:31] VITALS: BP 123/93; PULSE 94; RESP 16; TEMP 36.2; O2SAT 99; BMI 49.0
--- NOTE | 2022-03-20 16:38 | CT_ITS ---
STUDY: CT BRAIN WITHOUT CONTRAST ADMINISTRATION OF 1656 HOURS ON 03/20/2022 REASON FOR EXAM: 31-year-old female with fall and seizure. RADIATION DOSAGE (If Supplied By Facility): CTDIvol = ( 44.99 ) mGy, DLP = ( 711.75 ) mGycm. TECHNIQUE: Transaxial CT imaging of the brain was performed without administration of intravenous contrast material. Individualized dose optimization techniques were used for this CT. Sagittal and coronal reconstructions were obtained and all were demonstrated in osseous and soft tissue algorithms. COMPARISON: No relevant priors. FINDINGS: Normal ventricular system without a midline shift. No intracranial mass lesions. No subdural, epidural, intracerebral hematoma, hemorrhage or contusion. No infarcts. Normal sella and pituitary appear normal brainstem and posterior fossa. Normal calvarium without linear or depressed skull fractures. Prominent mucosal thickening in the right maxillary sinus and mucosal thickening in the posterior aspect of the right ethmoid sinus. The other paranasal sinuses are normal. CT/Brain/Head without Contrast IMPRESSION: 1. No intracranial mass lesions. 2. No subdural, epidural, or intracerebral hematoma, hemorrhage or contusion. 3. No infarcts. 4. No other intracranial pathology. 5. Normal calvarium without fractures. 6. Chronic right maxillary and posterior right ethmoid sinusitis. Electronically Signed: Henrry Samayoa MD at 17:55 EDT ,
--- NOTE | 2022-03-20 16:40 | EX.ED.DYSGE1 ---
HPI History of Present Illness Chief Complaint: Seizure Informant: patient Narrative Narrative: 31-year-old female presenting after seizure. Patient was at work and reportedly had a seizure. She was standing and fell to the ground. She states she woke up with people around her. She states she has been under a lot of stress recently. She denies suicidal ideation. 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 Complains of mild headache, denies other injury from fall. Denies recent illness. No incontinence. Denies possibility of . Denies other complaints. Prior similar symptoms: Yes Recent Illness/Hospital[facility]: [facility] Medical History Pseudoseizures Home Medications atorvastatin 10 mg tablet 10 mg PO QHS 06/09/17 [History Last Taken Unknown] trazodone 50 mg tablet 50 mg PO QHS PRN Insomnia 06/09/17 [History Last Taken Unknown] venlafaxine 150 mg capsule,extended release 24 hr 150 mg PO DAILY 06/09/17 [History Last Taken Unknown] acarbose 25 mg tablet 25 mg PO TID 03/20/22 [History Last Taken Unknown] biotin 5 mg capsule 5 mg PO DAILY 03/20/22 [History Last Taken Unknown] buspirone 10 mg tablet 10 mg PO BID 03/20/22 [History Last Taken Unknown] cariprazine 4.5 mg capsule (Vraylar) 4.5 mg PO DAILY 03/20/22 [History Last Taken Unknown] famotidine 20 mg tablet 20 mg PO DAILY 03/20/22 [History Last Taken Unknown] metformin 500 mg tablet,extended release 24 hr 500 mg PO DAILY 03/20/22 [History Last Taken Unknown] Allergy/AdvReac Type Severity Reaction Status Date / Time erythromycin base Allergy Angioedema Verified 06/23/17 11:22 medroxyprogesterone Allergy Rash Verified 06/23/17 11:22 [From Depo-Provera] olanzapine [From Zyprexa] Allergy Swelling Verified 06/23/17 11:22 sulfamethoxazole Allergy Swelling Verified 06/23/17 11:22 [From Bactrim] trimethoprim [From Bactrim] Allergy Swelling Verified 06/23/17 11:22 amitriptyline [From Elavil] AdvReac Other Verified 06/23/17 11:22 amoxicillin [From Augmentin] AdvReac Diarrhea Verified 06/23/17 11:22 azithromycin [From Zithromax] AdvReac Diarrhea Verified 06/23/17 11:22 clavulanic acid AdvReac Diarrhea Verified 06/23/17 11:22 [From Augmentin] Social History Smoking Status: Unknown if ever smoked ROS ROS ED Constitutional Constitutional ED: Denies fever(s) Eyes Eyes: Denies change in vision ENT ENT ED: Denies rhinorrhea or sore throat Cardiovascular Cardiovascular: Denies chest pain or palpitations Respiratory/Chest Respiratory/Chest: Denies cough or dyspnea Gastrointestinal Gastrointestinal: Denies abdominal pain, diarrhea, nausea or vomiting Genitourinary Genitourinary ED: Denies dysuria Musculoskeletal Musculoskeletal: Denies myalgias Integumentary Denies rash Neurologic Neurologic: Reports headache(s) Psychiatric Psychiatric: Denies suicidal thoughts EXAM Physical Exam Const Vital Signs: 03/20/22 16:31 Temperature 97.1 F L Temperature Source Oral Pulse Rate 94 Respiratory Rate 16 Blood Pressure 123/93 H Blood Pressure Mean 103 Pulse Ox 99 Oxygen Delivery Method Room Air Positive well nourished and well developed General Appearance ED: well developed HEENT Reports normocephalic and head/scalp atraumatic Eyes PERRL and EOMs intact bilaterally Neck supple Neck Narrative: No midline cervical spine tenderness. General: Negative for tenderness Chest Wall inspection of chest normal Resp normal respiratory effort and clear to auscultation bilaterally Cardio regular rate and regular rhythm GI non-tender and non-distended Palpation: soft; Negative for guarding or rebound tenderness present no CVA tenderness Extremity normal to inspection Neuro oriented x3, CN's II-XII intact bilaterally and no sensory deficits noted Sensorium / Orientation: alert Motor Exam: strength 5/5 throughout Psych mental status grossly normal MDM MDM MDM Narrative Medical decision making narrative: CBC, chemistries obtained. Penermon level less than 0.20. Patient later stated that she no longer takes lithium. CT head shows no acute process. Patient is resting comfortably on reevaluation. She has had no further seizure activity. She is advised to not drive until following up with neurology. She is comfortable with this plan. Advised to return to ED for worsening complaints Lab Data Attestation: I reviewed the patient's lab results. Labs: Laboratory Results - last 24 hr 03/20/22 03/20/22 03/20/22 16:47 16:47 16:47 WBC 7.6 RBC 4.72 Hgb 13.9 Hct 42.2 MCV 89.4 MCH 29.4 MCHC 32.9 RDW Std Deviation 40.0 RDW Coeff of Debra 12.2 Plt Count 205 MPV 11.1 Immature Gran % (Auto) 0.100 Neut % (Auto) 53.8 Lymph % (Auto) 37.6 [place] % (Auto) 7.0 Eos % (Auto) 1.1 Baso % (Auto) 0.4 Absolute Neuts (auto) 4.1 Absolute Lymphs (auto) 2.86 Nucleated RBC % 0 Sodium 141 Potassium 4.3 Chloride 109 H Carbon Dioxide 24.0 Anion Gap 8 BUN 11 Creatinine 0.87 Estim Creat Clear Calc 155.93 Est GFR (MDRD) Af Amer 97 Est GFR (MDRD) Non-Af 80 BUN/Creatinine Ratio 12.7 Glucose 131 H Calcium 8.9 Penermon < 0.20 L Radiography Diagnostic Testing: Clinical Impression(s) from Imaging Studies Brain CT 03/20/22 16:38 IMPRESSION: 1. No intracranial mass lesions. 2. No subdural, epidural, or intracerebral hematoma, hemorrhage or contusion. 3. No infarcts. 4. No other intracranial pathology. 5. Normal calvarium without fractures. 6. Chronic right maxillary and posterior right ethmoid sinusitis. Electronically Signed: Henrry Samayoa MD at 17:55 EDT , Discharge Plan Triage Chief Complaint: Seizure ED Provider: Ruth Swann Dx/Rx/DC Orders Clinical Impression: Seizure Instructions: ED Seizure, Recurrent (Adult) Prescriptions: No Action trazodone 50 MG tablet 50 mg PO QHS PRN (Reason: Insomnia) atorvastatin 10 MG tablet 10 mg PO QHS venlafaxine 150 MG capsule 150 mg PO DAILY biotin 5 mg capsule 5 mg PO DAILY Label Comments: TAKE 1 CAPSULE BY MOUTH DAILY famotidine 20 mg tablet 20 mg PO DAILY Label Comments: TAKE 1 TABLET BY MOUTH EVERY DAY buspirone 10 mg tablet 10 mg PO BID metformin 500 mg tablet extended release 24 hr 500 mg PO DAILY Label Comments: TAKE 1 TABLET BY MOUTH ONCE DAILY DIRECTED acarbose 25 mg tablet 25 mg PO TID Label Comments: TAKE 1 TABLET BY MOUTH 3 TIMES DAILY WITH MEALS Vraylar 4.5 mg capsule 4.5 mg PO DAILY Label Comments: TAKE 1 CAPSULE BY MOUTH DAILY Primary Care Provider: Bryan Shukla Referrals: [facility] Doctor,Out of [Non-Staff] - Tito Saenz MD [Non-Staff -Ordering Privileges] - Disposition Disposition: Home, Self Care
[2022-03-20 17:13] LABS: Anion Gap 8 (5-15); BUN 11 mg/dL (7-18); BUN/Creat Ratio 12.7 RATIO (10-20); Calcium,Total 8.9 mg/dL (8.5-10.1); Chloride 109 mmol/L (98-107); Creatinine, Serum 0.87 mg/dL (0.55-1.02); EST Glomerular Filtration Rate 80 mL/min (>60); Est Glom Filt Rate - Afr Amer 97 mL/min (>60); Estimated Creatinine Clearance 155.93 ml/min; Glucose 131 mg/dL (74-106); Potassium 4.3 mmol/L (3.5-5.1); Sodium Level 141 mmol/L (136-145)
[2022-03-20 17:19] LABS: Absolute Lymphocyte Count 2.86 X10^3/uL (0.83-4.51); Absolute Neutrophil Count 4.1 X10^3/uL (2.0-7.7); Basophil# 0.03 X10^3/uL; Basophil% 0.4 % (0-1); Eosinophil# 0.08 X10^3/uL; Eosinophils% 1.1 % (0-5); Hematocrit 42.2 % (37-47); Hemoglobin 13.9 g/dL (12.0-15.0); Lymphocyte # 2.86 X10^3/ul (0.83-4.51); Lymphocyte % 37.6 % (19-41); Mean Corp Hgb Conc 32.9 g/dL (32-36); Mean Corpuscular Hgb 29.4 pg (27.0-32.0); Mean Corpuscular Volume 89.4 fL (81-99); Mean Platelet Vol. 11.1 fl (6.2-12.0); Monocyte# 0.53 X10^3/uL; NRBC Flagged by Analyzer 0 % (0-5); Neutrophil # 4.09 X10^3/uL (2.7-7.7); Neutrophil % 53.8 % (47-70); Platelet Count 205 K/mm3 (150-450); RBC Distribution Width CV 12.2 % (11.6-14.6); Red Blood Count 4.72 M/mm3 (4.2-5.4); White Blood Count 7.6 K/mm3 (4.4-11.0)
[2022-03-20 18:08] LABS: Lithium < 0.20 mmol/L (0.60-1.20)
[2022-03-20 18:15] LABS: Internal QC Validated? YES +Cl - CLEAR BKGD
[2022-03-20 18:16] LABS: Pregnancy, Urine Negative Negative
[2022-03-20 18:34] VITALS: BP 119/89; PULSE 85; RESP 13; O2SAT 99
== END 2022-03-20 18:41 | disposition home or self-care (01) ==
PROVIDERS: Emergency Provider Emergency Medicine; PCP Internal Medicine; Visit Provider Emergency Medicine
DX: R56.9 Unspecified convulsions (principal); R51.9 Headache, unspecified
CPT/HCPCS: 70450; 80048; 80178; 81025; 85025; 99285; A4216